=== PATIENT | female | born 1965 | race Caucasian/White ===

== ENCOUNTER 2023-09-25 16:36 | Emergency (ER) | payer OTHER, SELFPAY ==
[2023-09-25 16:52] VITALS: BP 135/86
[2023-09-25 17:17] LABS: Urine Albumin Negative (Neg - Trace); Urine Bilirubin Negative (Negative); Urine Character Clear (Clear); Urine Color Straw; Urine Glucose Negative (Negative); Urine Ketone Negative (Negative); Urine Leukocyte Negative (Negative); Urine Nitrite Negative (Negative); Urine Occult Blood Negative (Negative); Urine Specific Gravity 1.005 (<1.030); Urine Urobilinogen Negative (Neg - 1+); Urine pH 6.5 (5.0-9.0)
[2023-09-25 17:18] LABS: % Basophils 0.4 % (0-2); % Eosinophils 3.3 % (0-6); % Immature Granulocytes 0.8 % (0-0.5); % Lymphocytes 25.9 % (20.5-51.1); % Monocytes 6.1 % (1.7-9.3); % Neutrophils 63.5 % (42.2-75.2); Absolute Eosinophils 0.3 10^3/uL (0-0.7); Absolute Immature Granulocytes 0.1 10^3/uL (0-0.05); Absolute Monocytes 0.5 10^3/uL (0.1-0.6); Absolute Neutrophils 4.9 10^3/uL (1.4-6.5); Hematocrit 38.3 % (37.0-47.0); Mean Corp Hgb Conc. 33.9 g/dL (33.0-37.0); Mean Corpuscular Hgb 26.7 pg (27.0-31.0); Mean Corpuscular Volume 78.8 fL (81.0-99.0); Mean Platelet Volume 8.5 fL (7.4-10.4); Nucleated Red Blood Cells % 0 %; Platelet Count 284 10^3/uL (130-400); Red Blood Cell Count 4.86 10^6/uL (4.20-5.40); Red Cell Dist. Width 13.4 % (11.5-14.5); White Blood Cell Count 7.7 10^3/uL (4.8-10.8)
[2023-09-25 17:39] LABS: ALT (SGPT) 25 U/L (0-35); AST (SGOT) 27 U/L (14-36); Alkaline Phosphatase 92 U/L (38-126); Blood Urea Nitrogen 12 mg/dl (7-17); Calcium 9.6 mg/dl (8.4-10.2); Carbon Dioxide 28 mmol/L (22-30); Chloride 99 mmol/L (98-107); Glucose 112 mg/dl (70-99); Potassium 4.2 mmol/L (3.5-5.1); Sodium 137 mmol/L (135-145); Total Bilirubin 0.4 mg/dl (0.2-1.3); Total Protein 6.7 g/dl (6.3-8.2); eGFR > 60.00
[2023-09-25 18:14] LABS: TSH Reflex To Free T4 2.03 uIU/ml (0.47-4.68)
--- NOTE | 2023-09-25 19:40 | ED.GENMED ---
History of Present Illness
General
Chief Complaint: Dehydration Symptoms
Source: patient
Exam Limitations: none
Time Seen by Provider: 09/25/23 19:19
Nursing documentation reviewed up to this point in time: agreed with
Travel History
Have you had any contact with someone who has COVID-19?: No
Do you have any symptoms of coronavirus? Fever > 100 degrees, chills, cough, shortness of breath, sore throat, loss of taste or smell, muscle aches, or headache?: No
History of Present Illness
History of Present Illness:
Patient is a very pleasant 58-year-old female with mental illness previously on Zyprexa switched over to Seroquel--- her dose was increased recently since then she has had dry mouth, she has multiple medical complaints chronically seeing multiple
physicians as an outpatient she is seeing ENT cardiology dermatology scheduled for stress test tomorrow she was concerned because her mouth is dry, said no vomiting no chest pain no shortness of breath, visiting her family member lives in this area
she lives in the [facility] gets most of her care through [facility] in [facility] she is retired previously worked in accounting secretarial work, in addition melanoma she has asthma, she does not smoke but her
brother smokes in the house occasionally
Past History
Past History
ED Past Medical History: Asthma, Psychiatric and Other (Duodenal ulcer); Negative HTN, Hypercholesterolemia or NIDDM
ED Past Surgical History: Gynecological (left oophorectomy)
Social History
Tobacco: Former smoker
Alcohol: None
Personal:
Living: with family
Employment: Retired
Review of Systems
Review of Systems
All Other Systems: Not applicable
EENT: Reports other (Dry mouth)
Respiratory: Reports no symptoms
Cardiac: Reports no symptoms
ABD/GI: Reports no symptoms
: Reports no symptoms
Musculoskeletal: Reports no symptoms
Phy Exam
Physical Exam
Physical Exam:
Physical Exam
General: no apparent distress, not acutely ill
Neck: Lips are slightly
Heart: Regular
Lungs: no acute respiratory distress. clear bilaterally
Abdomen: Not tender
Neuro: alert and oriented. no focal neurological deficits
Skin: no rash
Psychiatric: Patient is cooperative very tangential, redirectable,
Extremities: no edema.
Course
Orders/Labs/Results
Orders:
Orders
09/25/23 16:56
ECG [Electrocardiogram (*1)] Urgent
Reason for Study: Fatigue / Weakness
09/25/23 16:57
EKG- Treatment ONCE
09/25/23 17:10
Complete Blood Count/With Diff Urgent
Comprehensive Metabolic Panel Urgent
Magnesium Urgent
TSH Reflex To Free T4 Urgent
Urine Culture Reflexed from UA [Urinalysis Reflex To Culture] Urgent
Date Specimen was Collected: 09/25/23
Time Specimen was Collected: 16:57
09/25/23 19:40
0.9% Sodium Chloride 1000 ml [Nss] 1,000 ml IV BOLUS
Abnormal Lab Results
09/25/23
17:10
MCV 78.8 L fL
(81.0-99.0)
MCH 26.7 L pg
(27.0-31.0)
Abs Immat Gran (auto) 0.1 H 10^3/uL
(0-0.05)
Immature Gran % 0.8 H %
(0-0.5)
Glucose 112 H mg/dl
(70-99)
09/25/23 17:10
09/25/23 17:10
Vital Signs
Initial and Last Documented VS:
Initial Vital Signs
Temp Pulse Resp BP Pulse Ox
98.7 F 108 20 135/86 97
09/25/23 16:52 09/25/23 16:52 09/25/23 16:52 09/25/23 16:52 09/25/23 16:52
Last Documented Vital Signs
Temp Pulse Resp BP Pulse Ox
98.7 F 108 20 135/86 97
09/25/23 16:52 09/25/23 16:52 09/25/23 16:52 09/25/23 16:52 09/25/23 16:52
MDM/Problems Addressed
Differential Diagnosis Includes:
Psychosomatic anticholinergic med effect
MDM/Problems Addressed:
Dry mouth
Chronic conditions affecting care:
Asthma mental illness reflux
Chronic conditions affecting care: Asthma and Psychiatric illness
Acute Exacerbation and/or Progression of Chronic Illness: Asthma and Psychiatric illness
*Pulse Oximetry
Patient hypoxic: no
*EKG
Interpreted by ED Provider?: Yes
Interpretation: normal
Comparison EKG: no comparison EKG present
Heart Rate: 78
Rate: normal
[place]: normal axis
Ischemia: no ischemia
*Critical Care Note
Total Time (30-74mins, 75-104mins- exclusive of procedures): Not Applicable
Update Note
Update Note:
Update labs look unremarkable EKG unremarkable no ketones in her urine perhaps this is all anticholinergic for her meds will give her a liter saline provide reassurance no indication for admission based upon history physical and labs
ED Attending Note
-
Portions of this chart may have been created with voice recognition software.� Occasional wrong word or��sound alike� substitutions may have occurred due to the inherent limitations of voice recognition software.
Discharge Plan
Departure
Patient Disposition: Home (Routine Discharge)
Date of Disposition: 09/25/23
Time of Disposition: 21:00
Patient with high blood pressure during this ER visit?: No
Condition: Good
Discharge Problem:
Dry mouth
Instructions: Xerostomia, Why Is Saliva So Important?
Prescriptions:
No Action
ondansetron 4 mg tablet,disintegrating
4 mg PO TID PRN (Reason: nausea and vomiting) Qty: 10 0RF
Referrals:
NONE,* [Family Provider] -
Activity Restrictions/Additional Instructions:
Talk to your physicians about changing the dose of your medications
Interventions
Interventions:
*Risk Screen - Suicide Last Done: 09/25/23 16:52
*General Assessment Last Done: 09/25/23 16:52
*Neglect/Abuse Screening Last Done: 09/25/23 16:52
ED- Fall Risk Assessment Last Done: 09/25/23 19:59
*ED COVID-19 Vaccine History Last Done: 09/25/23 19:59
ED- Cardiac Assessment Last Done: 09/25/23 19:59
ED- Neurological Assessment Last Done: 09/25/23 19:59
ED- Pulmonary Assessment Last Done: 09/25/23 19:59
[2023-09-25 19:59] VITALS: BMI 26.4
[2023-09-25 20:00] VITALS: BP 121/78
[2023-09-25] MEDS: NSS 1000 IV (20:13)
[2023-09-25 21:00] VITALS: BP 118/73
== END 2023-09-25 21:41 | disposition home or self-care (01) ==
LOC: EMR 16:36
PROVIDERS: Emergency Medicine; EMERGENCY PHYSICIAN Emergency Medicine; FAMILY PHYSICIAN Internal Medicine
DX: R68.2 Dry mouth, unspecified (principal); J45.909 Unspecified asthma, uncomplicated; Z87.891 Personal history of nicotine dependence
CPT/HCPCS: 99284; 96360; 80053; 81003; 83735; 84443; 85025; 93005

== ENCOUNTER → 2024-07-15 21:42 | Outpatient (REF) | payer OTHER, SELFPAY | LOC: RAD 21:42 | PROVIDERS: ATTENDING PHYSICIAN Physician Assistant Medical; FAMILY PHYSICIAN Internal Medicine | DX: J32.9 Chronic sinusitis, unspecified (principal) | CPT/HCPCS: 71046 ==